=== PATIENT | female | born 1935 | race Caucasian/White ===

== ENCOUNTER 2018-07-07 15:35 | Emergency (ER) | payer OTHER ==
[~2018-07-07] VITALS: Ht 167.6 cm; Wt 85.0 kg
[2018-07-07 16:57] VITALS: Ht 167.6 cm; Wt 85.0 kg
[2018-07-07] MEDS ORDERED: CEFTRIAXONE 1 GM/50 ML (PMX) 50 ML IVPB ONE (21:30)
--- NOTE | 2018-07-07 21:44 | ERD ---
ER Documentation Chief Complaint Chief Complaint Patient HAYDEE with complaint of weakness and a rash since today HPI 82-year-old female with a history of hypertension and diabetes presenting with complaints of 1 week of generalized rash on her body that started on her neck today and progressively has moved down to her feet. She denies any associated pain or pruritus. No recent illnesses. She denies any recent fever, chills, runny nose, or ear pain. She has had a dry cough but she is unable to tell me for how long. She denies any exposures but she does live at a board and care facility. She denies any urinary symptoms at this time but she is complaining of constipation for the past 2 days. No associated abdominal pain, nausea, vomiting. ROS All systems reviewed and are negative except as per history of present illness. Medications Home Meds Active Scripts Ciprofloxacin Hcl* (Ciprofloxacin Hcl*) 500 Mg Tablet, 500 MG PO BID for 10 Days, TAB Prov:DEVYN LOPEZ MD 07/07/18 Bisacodyl* (Dulcolax*) 5 Mg Tablet.dr, 10 MG PO DAILY PRN for CONSTIPATION, #10 TAB Prov:DEVYN LOPEZ MD 07/07/18 Allergies Allergies: Coded Allergies: No Known Allergies (Verified Allergy, Unknown, 07/07/18) PMhx/Soc Medical and Surgical Hx: pt denies Surgical Hx History of Surgery: No Anesthesia Reaction: No Hx Neurological Disorder: Yes (diabetic neuropathy) Hx Respiratory Disorders: No Hx Cardiac Disorders: Yes (HTN) Hx Psychiatric Problems: No Hx Miscellaneous Medical Probl: Yes (DM) Hx Alcohol Use: No Hx Substance Use: No Hx Tobacco Use: No Smoking Status: Never smoker FmHx Family History: No diabetes Physical Exam Vitals Vital Signs Date Temp Pulse Resp B/P (MAP) Pulse Ox O2 O2 Flow FiO2 Time Delivery Rate 07/07/18 98.2 62 19 120/45 95 Room Air 22:13 (70) 07/07/18 98.2 64 18 131/60 95 Room Air 20:31 (83) 07/07/18 98.2 66 18 131/54 95 Room Air 19:54 (79) 07/07/18 98.2 62 20 117/50 97 Room Air 19:09 (72) 07/07/18 98.2 72 20 112/57 95 16:57 (75) Physical Exam Const: No acute distress, well-appearing Head: Atraumatic Eyes: Normal Conjunctiva ENT: Normal External Ears, Nose and Mouth. Neck: Full range of motion. No meningismus. Resp: Clear to auscultation bilaterally Cardio: Regular rate and rhythm, no murmurs Abd: Soft, non tender, non distended. Normal bowel sounds Skin: Maculopapular rash extending from her lower face down to her arms and legs. It involves trunk and back. Blanching. Nontender. No ulcers or vesicles Back: No midline or flank tenderness Ext: No cyanosis, or edema Neur: Awake and alert Psych: Normal Mood and Affect Result Diagram: 07/07/18192207/07/181922 Results 24 hrs Laboratory Tests Test 07/07/18 19:10 07/07/18 19:23 Urine Color [place] Urine Clarity CLOUDY Urine pH 5.0 Urine Specific [place] 1.023 Urine Ketones NEGATIVE mg/dL Urine Nitrite NEGATIVE mg/dL Urine Bilirubin NEGATIVE mg/dL Urine Urobilinogen NEGATIVE mg/dL Urine Leukocyte Esterase 3+ Khai/ul Urine Microscopic RBC 23 /HPF Urine Microscopic WBC 108 /HPF Urine Bacteria FEW /HPF Urine Hyaline Casts FEW /HPF Urine Mucus FEW /HPF Urine Yeast (Budding) FEW /HPF Urine Hemoglobin NEGATIVE mg/dL Urine Glucose NEGATIVE mg/dL Urine Total Protein 2+ mg/dl White Blood Count 18.0 10^3/ul Red Blood Count 3.45 10^6/ul Hemoglobin 9.2 g/dl Hematocrit 28.7 % Mean Corpuscular Volume 83.2 fl Mean Corpuscular Hemoglobin 26.7 pg Mean Corpuscular Hemoglobin Concent 32.1 g/dl Red Cell Distribution Width 18.3 % Platelet Count 315 10^3/UL Mean Platelet Volume 10.2 fl Immature Granulocytes % 0.900 % Neutrophils % 79.1 % Lymphocytes % 9.7 % Monocytes % 5.9 % Eosinophils % 4.1 % Basophils % 0.3 % Nucleated Red Blood Cells % 0.0 /100WBC Immature Granulocytes # 0.170 10^3/ul Neutrophils # 14.2 10^3/ul Lymphocytes # 1.7 10^3/ul Monocytes # 1.1 10^3/ul Eosinophils # 0.7 10^3/ul Basophils # 0.1 10^3/ul Nucleated Red Blood Cells # 0.0 10^3/ul Sodium Level 141 mmol/L Potassium Level 4.2 mmol/L Chloride Level 112 mmol/L Carbon Dioxide Level 22 mmol/L Anion Gap 7 Blood Urea Nitrogen 13 mg/dl Creatinine 1.14 mg/dl Est Glomerular Filtrat Rate mL/min mL/min Glucose Level 129 mg/dl Calcium Level 8.8 mg/dl Current Medications Medications Dose Sig/Vickie Start Time Status Last (Trade) Ordered Route PRN Stop Time Admin Dose Reason Admin Ceftriaxone 50 ml @ ONCE ONCE 07/07/18 DC 07/07/18 Sodium 100 mls/hr IVPB 21:30 21:15 07/07/18 21:59 Sodium 133 ml ONCE ONCE 07/07/18 DC 07/07/18 Biphosphate/ KS 22:00 22:23 Sodium 07/07/18 22:01 Phosphate (Fleet Enema) Procedures/MDM EMERGENT LABS AND DIAGNOSTIC STUDIES: Lab Results above were reviewed and interpreted by me. CBC: Leukocytosis, mild anemia BMP: No evidence of electrolyte abnormality, renal failure, hypoglycemia UA: Consistent with acute infection Measles PCR pending Initial Nursing notes reviewed. Previous Medical Records requested via the Electronic Health Record. EMERGENCY DEPARTMENT COURSE / MEDICAL DECISION MAKING: Patient is presenting with a nonspecific asymptomatic rash of unclear etiology. I did consider possible measles. There is no evidence of zoster. No evidence of meningococcemia. Vitals are stable. She did have a UTI for which ceftriaxone was given. Given her constipation, an enema was done. Labs were n otable for leukocytosis but I do not suspect sepsis in this patient. Patient will be treated outpatient with ciprofloxacin with continued follow-up with her doctor. At this point, I do not know the etiology of the rash, so no medications will be given. . Spoke with Dr. Greco from [facility]. He will arrange for follow-up with primary care physician for possible dermatology referral. Authorization #[id number] Departure Diagnosis: Primary Impression: Rash and other nonspecific skin eruption Additional Impression: UTI (urinary tract infection) Urinary tract infection type: acute cystitis Hematuria presence: without hematuria Qualified Codes: N30.00 - Acute cystitis without hematuria Condition: Stable DEVYN LOPEZ MD Jul 07, 2018 21:44
[2018-07-07] MEDS ORDERED: BISA-57 PO (21:59)
[2018-07-07] MEDS ORDERED: CIPR500T4 PO (21:59)
[2018-07-07] MEDS ORDERED: NA PHOSPHATE/BIPHOS 133 ML ENEMA PR ONE (22:00)
[2018-07-07 22:13] VITALS: BP 120/45; PULSE 62; RESP 19
== END 2018-07-08 00:39 | disposition home or self-care (01) ==
LOC: E/R 15:35
DX: N30.00 Acute cystitis without hematuria (principal); E11.9 Type 2 diabetes mellitus without complications; I10 Essential (primary) hypertension
CPT/HCPCS: 36415; 80048; 81001; 85025; 87086; 96374; 99284; J0696